=== PATIENT | female | born 1940 | race Caucasian/White ===

== ENCOUNTER 2021-11-07 07:21 | Outpatient (CLI) | payer MEDICARE ==
[2021-11-07] MEDS ORDERED: Iopamidol 300 61% 100 ML VIAL FS ONE (13:01)
== END 2021-11-07 07:22 | disposition home or self-care (01) ==
LOC: CSHCT 07:21
PROVIDERS: ATTEND Internal Medicine
DX: R59.0 Localized enlarged lymph nodes (principal); E04.1 Nontoxic single thyroid nodule
CPT/HCPCS: 70491; Q9967